=== PATIENT | female | born 1985 | race African-American/Black ===

== ENCOUNTER 2016-09-02 12:23 | Emergency (ER) | payer SELFPAY ==
[~2016-09-02] VITALS: Ht 157.5 cm; Wt 82.0 kg
[2016-09-02] MEDS ORDERED: KETOROLAC 30MG/ML VIAL IM ONE (13:15)
[2016-09-02] MEDS ORDERED: CYCLOBENZAPRINE 10MG TABLET PO ONE (13:15)
[2016-09-02 13:44] VITALS: BP 127/80
== END 2016-09-02 15:24 | disposition home or self-care (01) ==
LOC: ER 13:13
DX: S10.93XA Contusion of unspecified part of neck, initial encounter (principal); R03.0 Elevated blood-pressure reading, without diagnosis of hypertension; S20.229A Contusion of unspecified back wall of thorax, initial encounter; X58.XXXA Exposure to other specified factors, initial encounter; Y93.9 Activity, unspecified; Y92.9 Unspecified place or not applicable
CPT/HCPCS: 81025; 96372; 99283; J1885